=== PATIENT | male | born 1995 | race Caucasian/White ===

== ENCOUNTER 2023-07-31 00:04 | Emergency (ER) | payer OTHER ==
[~2023-07-31] VITALS: Ht 180.3 cm; Wt 93.9 kg
[2023-07-31 00:52] VITALS: BP 132/90
[2023-07-31] MEDS ORDERED: SULTRIDS PO (03:06)
== END 2023-07-31 03:46 | disposition home or self-care (01) ==
LOC: ER 00:04
DX: L03.211 Cellulitis of face (principal)
CPT/HCPCS: 99283; A9270